=== PATIENT | male | born 1980 | race African-American/Black ===

== ENCOUNTER 2019-01-10 14:53 | Emergency (ER) | payer OTHER ==
[~2019-01-10] VITALS: Ht 172.7 cm; Wt 77.1 kg
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
[2019-01-10] MEDS ORDERED: Acetaminophen 500mg (ES) tab ORAL ONE (15:15)
[2019-01-10] MEDS ORDERED: ACETAMINOPHEN500 M3 ORAL (15:20)
[2019-01-10] MEDS ORDERED: IBUPROFEN600 MG ORAL (15:20)
[2019-01-10 15:33] VITALS: BP 136/68
[2019-01-10 15:56] VITALS: BP 136/68
--- NOTE | 2019-01-10 15:58 | NUR ---
ER DISCHARGE NOTE: Patient is cleared to be discharged per ERMD, pt is aox4, on room air, with stable vital signs. pt was given dc and prescription instructions, pt was able to verbalize understanding, pt is able to ambulate with steady gait. pt took all belongings.
--- NOTE | 2019-01-10 16:31 | Diagnostic Imaging Report ---
EXAM: XR Left Tibia and Fibula, 2 Views CLINICAL HISTORY: PAIN TECHNIQUE: Frontal and lateral views of the left tibia and fibula. COMPARISON: No relevant prior studies available. FINDINGS: Bones/joints: No acute fracture. Soft tissues: No radiodense foreign body. IMPRESSION: No acute fracture.
== END 2019-01-10 16:56 | disposition home or self-care (01) ==
LOC: EMR 15:32
DX: S80.12XA Contusion of left lower leg, initial encounter (principal); V43.62XA Car passenger injured in collision with other type car in traffic accident, initial encounter; Y92.410 Unspecified street and highway as the place of occurrence of the external cause
CPT/HCPCS: 99283